=== PATIENT | female | born 1980 | race African-American/Black ===

== ENCOUNTER → 2018-08-01 16:53 | Outpatient (CLI) | payer BC | END | disposition home or self-care (01) | LOC: D.MRI 16:53 | DX: S56.512A Strain of other extensor muscle, fascia and tendon at forearm level, left arm, initial encounter (principal); X58.XXXA Exposure to other specified factors, initial encounter ==

== ENCOUNTER 2018-09-22 05:40 | Day surgery (SDC) | payer BC ==
[2018-09-16 08:50] LABS: HEMATOCRIT 33.4 % (36.0-48.0); HEMOGLOBIN 10.5 g/dL (12-16); MCH 24.3 pg (26.0-34.0); MCHC 31.4 g/dL (31.0-37.0); MCV 77.3 fL (80.0-100.0); MEAN PLATELET VOLUME 9.1 fL (7.4-10.4); RBC 4.32 10x6/uL (4.00-5.40); RDW 14.1 % (11.5-14.5)
[~2018-09-22] VITALS: Ht 160 cm; Wt 98.4 kg
[~2018-09-22 05:40] MED LIST: IBUPROFEN800 MG PO; ROBAXIN500 MG PO
[2018-09-22 06:44] VITALS: BP 110/71; Ht 160 cm; Wt 98.4 kg
[2018-09-22 07:07] LABS: HCG URINE NEGATIVE (NEGATIVE)
== END 2018-09-22 10:37 | disposition home or self-care (01) ==
LOC: D.OPS 05:40
PROVIDERS: Anesthesiology; Orthopaedic Surgery
DX: M77.12 Lateral epicondylitis, left elbow (principal); Z01.812 Encounter for preprocedural laboratory examination

== ENCOUNTER 2019-09-13 11:00 | Outpatient (CLI) | payer BC ==
[2018-09-22 06:44] VITALS: BMI 38.5
== END 2019-09-13 23:59 | disposition home or self-care (01) ==
LOC: D.MAMMO 11:00
PROVIDERS: ATTEND Family Medicine
DX: Z12.31 Encounter for screening mammogram for malignant neoplasm of breast (principal)